=== PATIENT | male | born 1965 | race Caucasian/White ===

== ENCOUNTER 2024-09-25 09:20 | Emergency (ER) | payer OTHER, SELFPAY ==
[2024-09-25 09:21] VITALS: BP 178/108
--- NOTE | 2024-09-25 09:39 | ED.GENMED ---
History of Present Illness
General
Chief Complaint: Musculo-Skeletal Complaint
Time Seen by Provider: 09/25/24 09:38
History of Present Illness
History of Present Illness:
59-year-old male with history of insulin-dependent diabetes presents to the emergency department for evaluation of nontraumatic bilateral neck pain ongoing for the past 2 days. Pain was gradual in onset, without obvious traumatic injury. Worse
when rotating her flexing forward. No radiating symptoms into the upper extremities, denies any vision changes or fevers. No nausea or vomiting. Has taken ibuprofen without relief.
Review of Systems
Review of Systems
Allergies reviewed?: Yes
All Other Systems: ROS reviewed and negative except as documented in HPI and ROS
Phy Exam
Physical Exam
Physical Exam:
GEN: Well appearing, NAD, WDWN
HEENT: Oral mucosa moist, no scleral icterus
Cardiac: Regular rate
Lung: No respiratory distress, no tachypnea
MSK: No gross deformity or injuries. No midline range of motion limited in all mauricio however patient is able to achieve greater than 45 degrees of rotation bilaterally. Bilateral upper extremity strength and sensation is intact in all mauricio and
symmetric
Skin: Good color, no pallor or jaundice, no rashes
Neuro: AO x3, moves all extremities freely
Psych: Calm, cooperative
Course
Orders/Labs/Results
Orders:
Orders
09/25/24 09:38
Ketorolac [Toradol] 30 mg IM NOW STA
Vital Signs
Initial and Last Documented VS:
Initial Vital Signs
Temp Pulse Resp BP Pulse Ox
97.8 F 97 18 178/108 97
09/25/24 09:21 09/25/24 09:21 09/25/24 09:21 09/25/24 09:21 09/25/24 09:21
Last Documented Vital Signs
Temp Pulse Resp BP Pulse Ox
97.8 F 97 18 178/108 97
09/25/24 09:21 09/25/24 09:21 09/25/24 09:21 09/25/24 09:21 09/25/24 09:21
MDM/Problems Addressed
MDM/Problems Addressed:
Patient has no clinical symptoms concerning for meningitis. No associated neurologic symptoms that would be worrisome for a vascular etiology to his neck pain. It is clearly reproduced on exam with palpation of the paraspinous muscles thus this is
likely an acute cervical sprain. Will treat supportively
*Critical Care Note
Total Time (30-74mins, 75-104mins- exclusive of procedures): Not Applicable
ED Attending Note
-
Portions of this chart may have been created with voice recognition software.� Occasional wrong word or��sound alike� substitutions may have occurred due to the inherent limitations of voice recognition software.
Discharge Plan
Departure
Patient Disposition: Home (Routine Discharge)
Date of Disposition: 09/25/24
Time of Disposition: 10:01
Patient with high blood pressure during this ER visit?: No
Discharge Problem:
Cervical strain
Instructions: Cervical Sprain ED
Prescriptions:
New
celecoxib [Celebrex] 200 mg capsule
200 mg PO BID 7 Days Qty: 14 0RF
methocarbamol 750 mg tablet
750 - 1,500 mg PO Q8H PRN (Reason: muscle spasm) Qty: 20 0RF
Interventions
Interventions:
*Risk Screen - Suicide Last Done: 09/25/24 10:25
*General Assessment Last Done: 09/25/24 10:25
*Neglect/Abuse Screening Last Done: 09/25/24 10:25
ED- Fall Risk Assessment Last Done: 09/25/24 10:25
*ED COVID-19 Vaccine History Last Done: 09/25/24 09:21
*Nursing Disposition Last Done: 09/25/24 10:25
ED-Musculoskeletal Assessment Last Done: 09/25/24 10:22
ED- Neurological Assessment Last Done: 09/25/24 10:22
Discharge Date and Time
Discharge Date/Time: 09/25/24 10:27
Print Language: ARMENIAN
[2024-09-25] MEDS: TORADOL 30 MG IM (09:44)
== END 2024-09-25 10:27 | disposition home or self-care (01) ==
LOC: EMR 09:20
PROVIDERS: EMERGENCY PHYSICIAN Emergency Medicine; FAMILY PHYSICIAN Nurse Practitioner Adult Health
DX: S16.1XXA Strain of muscle, fascia and tendon at neck level, initial encounter (principal); X58.XXXA Exposure to other specified factors, initial encounter; E11.9 Type 2 diabetes mellitus without complications
CPT/HCPCS: 99284; 96372

== ENCOUNTER → 2025-01-15 13:26 | Outpatient (REF) | payer OTHER, SELFPAY | LOC: PAVMRI 13:26 | PROVIDERS: ATTENDING PHYSICIAN Orthopaedic Surgery Hand Surgery; FAMILY PHYSICIAN Internal Medicine | DX: M75.22 Bicipital tendinitis, left shoulder (principal) | CPT/HCPCS: 73221 ==

== ENCOUNTER 2025-05-31 22:23 | Emergency (ER) | payer OTHER, SELFPAY ==
[2025-05-31 22:25] VITALS: BP 215/107
[2025-05-31 22:54] LABS: Glucose - Point of Care 125 mg/dl (70-99)
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
[2025-06-01 01:44] VITALS: BP 153/94
[2025-06-01] MEDS: ADACEL 0.5 ML IM (01:52)
[2025-06-01 01:59] LABS: Hematocrit 47.5 % (39.0-52.0); Hemoglobin 16.4 g/dL (13.0-18.0); Mean Corp Hgb Conc. 34.5 g/dL (33.0-37.0); Mean Corpuscular Volume 90.0 fL (80.0-94.0); Nucleated Red Blood Cells % 0 % (-); Platelet Count 334 10^3/uL (130-400); Red Cell Dist. Width 12.3 % (11.5-14.5)
[2025-06-01 02:13] LABS: INR 0.96; PT 13.1 Sec (11.4-14.6)
[2025-06-01 02:14] LABS: APTT 33.1 Sec (23.4-35.0)
[2025-06-01 02:26] LABS: ALT (SGPT) 24 U/L (0-50); AST (SGOT) 27 U/L (17-59); Albumin 4.6 g/dl (3.5-5.0); Alkaline Phosphatase 105 U/L (38-126); Blood Urea Nitrogen 14 mg/dl (9-20); Calcium 10.0 mg/dl (8.4-10.2); Carbon Dioxide 24 mmol/L (22-30); Chloride 108 mmol/L (98-107); Glucose 47 mg/dl (70-99); Potassium 4.1 mmol/L (3.5-5.1); Sodium 140 mmol/L (135-145); Total Protein 7.3 g/dl (6.3-8.2); eGFR > 60.00
== END 2025-06-01 02:53 | disposition home or self-care (01) ==
LOC: EMR 22:23
PROVIDERS: EMERGENCY PHYSICIAN Emergency Medicine; FAMILY PHYSICIAN Nurse Practitioner Adult Health
DX: S05.91XA Unspecified injury of right eye and orbit, initial encounter (principal); W22.8XXA Striking against or struck by other objects, initial encounter; I10 Essential (primary) hypertension; Z23 Encounter for immunization
CPT/HCPCS: 90471; 99284; 70480; 80053; 82962; 85025; 85610; 85730; 90715; 93005

== ENCOUNTER → 2025-08-12 17:44 | Outpatient (REF) | payer OTHER, SELFPAY | LOC: RAD 17:44 | PROVIDERS: ATTENDING PHYSICIAN Nurse Practitioner Acute Care | DX: M79.604 Pain in right leg (principal); R60.0 Localized edema | CPT/HCPCS: 93971 ==